=== PATIENT | male | born 2000 | race American Indian/Alaskan Native ===

== ENCOUNTER 2019-06-02 09:48 | Emergency (ER) | payer SELFPAY ==
[2019-06-02 10:00] VITALS: BP 129/79
--- NOTE | 2019-06-02 11:37 | Emergency Department Report ---
ED Rash HPI - HPI Chief Complaint: Skin/Abscess/Foreign Body Stated Complaint: ITCHY ALL OVER Time Seen by Provider: 06/02/19 10:28 Duration: 6 days Location: Upper Extremities, Lower Extremities Suspected Cause: Unknown Rash Symptoms: Yes Itching, No Facial Swelling, No Tongue/Oral Swelling, No Breathing Difficulties, No Choking Sensation, No Wheezing/Dyspnea, No Peeling, No Blistering, No Fever, No Lightheaded, No Malaise, No Myalgias Severity: mild Other History: This is a 18-year-old -[place] male who presents to the emergency room with generalized pruritus for 6 days. Patient states he recently moved into a new apartment and not sure if he is infected with bugs. States he inspected his mattress with no signs of bedbugs. He is currently not taking any medication at this time. He denies dysphasia, shortness of breath, wheezing, swelling or bruising. ED Review of Systems ROS: Stated complaint: ITCHY ALL OVER Other details as noted in HPI Constitutional: denies: chills, fever Respiratory: denies: cough, shortness of breath, wheezing Cardiovascular: denies: chest pain, palpitations Gastrointestinal: denies: abdominal pain, nausea, diarrhea Skin: rash, pruritus. denies: lesions Neurological: denies: headache, weakness, paresthesias Psychiatric: denies: anxiety, depression ED Past Medical Hx - Past Medical History Previous Medical History?: No - Surgical History Past Surgical History?: No - Social History Smoking Status: Never Smoker Substance Use Type: Marijuana - Medications Home Medications: Home Medications Medication Instructions Recorded Confirmed Last Taken Type Permethrin [Nix Complete] 324.86 ml MC DAILY #1 combo..pkg 06/02/19 Unknown Rx Triamcinolone 0.5% [Kenalog 0.5% 1 applic TP TID #1 tube 06/02/19 Unknown Rx CREAM] hydrOXYzine PAMOATE [Vistaril] 25 mg PO Q6HR PRN #20 capsule 06/02/19 Unknown Rx Rash Exam - Exam General: Vital signs noted. No distress. Alert and acting appropriately. HEENT: No Periorbital Edema, No Conjuctival Injection, No Chemosis, No Perioral Edema, No Tongue Edema, No Uvular Edema, No Compromised Airway, No Drooling Lungs: Yes Good Air Exchange (Normal Breath Sounds), No Wheezes, No Ronchi, No Stridor, No Cough, No Labored Respirations, No Retractions, No Use of Accessory Muscles, No Other Abnormal Lung Sounds Heart: Yes Regular, No Murmur Skin: Yes Maculopapular Rash (Bilateral upper and bilateral lower extremity), No Urticarial Rash, No Morbilliform rash, No Bulla(e), No Excoriations, No Weeping, No Tenderness, No Erythema, No Edema, No Encrustations Other: Positive: Abdomen Normal, Neurologic Normal, Musculoskeletal Normal ED Course Vital Signs 06/02/19 09:56 Temperature 98.3 F Pulse Rate 71 Respiratory 18 Rate Blood Pressure 129/79 O2 Sat by Pulse 99 Oximetry ED Medical Decision Making - Medical Decision Making This is a 18-year-old male who presents to the emergency room with generalized pruritic rash 6 days. Vitals are stable and patient in no acute distress. Negative respiratory symptoms such as wheezing, respiratory distress, or cardiovascular symptoms. Uvula midline without swelling. Airway is patent. Denies nausea, vomiting, or diarrhea. There is a mild maculopapular rash to bilateral upper and lower extremity. Start Vistaril and steroids. Discharged home with strict return precautions. Follow-up with primary care doctor in 1 to 2 days. Critical care attestation.: If time is entered above; I have spent that time in minutes in the direct care of this critically ill patient, excluding procedure time. ED Disposition Clinical Impression: Pruritic erythematous rash Contact dermatitis Qualifiers: Contact dermatitis type: allergic Contact dermatitis trigger: other trigger Qualified Code(s): L23.89 - Allergic contact dermatitis due to other agents; L23.8 - Allergic contact dermatitis due to other agents Disposition: DC-01 TO HOME OR SELFCARE Is pt being admited?: No Condition: Stable Instructions: Contact Dermatitis (ED) Prescriptions: Triamcinolone 0.5% [Kenalog 0.5% CREAM] 1 applic TP TID #1 tube Permethrin [Nix Complete] 324.86 ml MC DAILY #1 combo..pkg hydrOXYzine PAMOATE [Vistaril] 25 mg PO Q6HR PRN #20 capsule PRN Reason: Itching Referrals: NIVIA PALMA MD [Staff Physician] - 3-5 Days [facility] [Outside] - 3-5 Days [facility] [Outside] - 3-5 Days [facility] [Provider Group] - 3-5 Days Time of Disposition: 11:50
== END 2019-06-02 12:07 | disposition home or self-care (01) ==
LOC: ED 09:48
DX: L23.9 Allergic contact dermatitis, unspecified cause (principal); L29.8 Other pruritus; F12.90 Cannabis use, unspecified, uncomplicated; Z79.899 Other long term (current) drug therapy
CPT/HCPCS: 99282